=== PATIENT | female | born 1995 | race Caucasian/White ===

== ENCOUNTER 2017-05-02 05:28 | Inpatient (IN) ==
[2017-05-02] MEDS ORDERED: CITRIC ACID/SODIUM CITRATE 30ml PO ONE (05:43)
[2017-05-02] MEDS ORDERED: CEFAZOLIN PREMIX (MC ONLY) 2 GM/50 ML BAG IV ONE (05:43)
[2017-05-02] MEDS ORDERED: NOZIN NASAL SWAB NAS ONE ×2 (05:43)
[2017-05-02] MEDS ORDERED: FAMOTIDINE PB 20 MG/50 ML BAG IV ONE (05:43)
[2017-05-02 05:59] VITALS: BMI 34.0
[2017-05-02] MEDS ORDERED: NOZIN NASAL SWAB NAS SCH (06:00)
[2017-05-02] MEDS: LR 1,000 ML IV SCH ×4 (06:11→10:13)
--- NOTE | 2017-05-02 07:01 | Anesthesia Preoperative Report ---
Anesthesia Epidural/Spinal Rec - Date and Time Date: 05/02/17 Preoperative Diagnosis: C Section Procedure: Plan: Spinal - Vital Signs Vital Signs: Temperature 98.2 F 05/02/17 05:59 Pulse Rate 83 05/02/17 05:59 Respiratory Rate 18 05/02/17 05:59 Blood Pressure 130/93 H 05/02/17 05:59 Pulse Oximetry 98 05/02/17 05:59 /Para: P:1 - Medictaions & Allergies Inpatient Medications: Current Medications Lactated Ringer's (Lactated Ringers) 1,000 mls @ 999 mls/hr IV .Q1H1M [place] Isopropyl Alcohol (Nozin Nasal Swab) 1 each THOMAS 0600,1400,2200 [place] Allergies/Adverse Reactions: Allergies Allergy/AdvReac Type Severity Reaction Status Date / Time No Known Allergies Allergy Verified 03/10/17 12:37 - Home Medications Home Medications: Home Medications Medication Instructions Recorded Confirmed Type No known Home medications [No home 03/10/17 03/10/17 History meds] - Medical History Respiratory: DENIES: Asthma, Bronchitis, Chronic Obstructive Pulmonary Disease (COPD), Dyspnea, Orthopnea, Pulmonary Embolism, Pneumonia, Upper Respiratory Infection, Pulmonary Edema, Sleep Apnea, Tuberculosis, Other Cardiovascular: DENIES: Abnormal EKG, Angina, Arrhythmia, Congestive Heart Failure, Coronary Artery Disease, Heart Murmur, Hypertension, Hypotension, High Cholesterol, Myocardial Infarction, Rheumatic Fever, Valvular Heart Disease, Other Gastrointestional: DENIES: Obstructive Bowel, Hepatitis, Cirrhosis, Nausea or Vomiting Present, Gastroesophageal Reflux Disease, Gastrointestinal Bleeding, Hiatal Hernia, Ulcer , Morbid Obesity, Other Neuro/Musculoskeletal: Denies: HX.MS.OSAR, Back Problems, Cerebrovascular Accident, Depression, Headaches, Loss of Consciousness, Muscle Weakness, Neuromuscular Disorder, Paralysis, Paresthesia, Syncope, Seizures, Other Renal/Endocrine: DENIES: Diabetes Mellitus Type 1, Diabetes Mellitus Type 2, Renal Failure, Dialysis, Thyroid Disease, Weight Loss, Weight Gain, Other Other History: Reports: Now DENIES: Anesthesia Reactions, Blood Transfusions, Chemotherapy, Cancer, Hemophilia, Malignant Hyperthermia, Sickle Cell Disease, Other - Surgical History Anesthesia Reactions: None Hx Family Anesthesia Reaction: No History of Motion Sickness: No - Social History Smoking Status: Never smoker Second Hand Exposure: No Substance Use Type: does not use Alcohol Intake: never Alcohol Intake Frequency: does not drink Hx Chewing Tobacco Use: No - Pertinent Findings Lab Data: CBC and BMP 05/02/17 06:11 - Physical Exam Respiratory Exam: lungs clear, bilateral breath sounds equal Cardiovascular Exam: regular rate and rhythm, no murmur - Airway Assessment Mallampati Score: I TMD: 3 Fingerbreadths Neck Extension: good Overall Assessment: may be difficult intubation - ASA ASA Score: 2 - Discussion Discussion: Discussed risks/options/alternatives of anesthesia and questions answered. Patient consents. Nursing pain assessment noted. Attestation Statement: Prior to the delivery of any anesthetic medication, I examined the patient, developed the plan, obtained the patient's consent and discussed the risk and benefits of the procedure with the patient/guardian.
[2017-05-02] MEDS ORDERED: FentaNYL 100 MCG/2 ML INJECTION ONE (07:07)
[2017-05-02] MEDS ORDERED: ONDANSETRON 4 MG/2 ML INJECTION ONE (07:07)
[2017-05-02] MEDS ORDERED: MORPHINE SULFATE PF 5mg/10ml INJ (Duramorph) ONE (07:07)
[2017-05-02] MEDS ORDERED: EPHEDRINE 50mg/ml INJECTION ONE (07:18)
[2017-05-02] MEDS ORDERED: OXYTOCIN 10 UNIT/ML INJECTION ONE (07:34)
[2017-05-02] MEDS: OXYTOCIN DRIP 30 UNIT/500 ML ML IV SCH ×2 (07:38→10:14)
[2017-05-02] MEDS ORDERED: OXYTOCIN 10 UNIT/ML INJECTION IV ONE (08:36)
[2017-05-02] MEDS ORDERED: CALCIUM CARBONATE Chewable 500mg TABLET PO PRN (08:44)
[2017-05-02] MEDS ORDERED: DiphenhydrAMINE 25 MG CAPSULE PO PRN (08:44)
[2017-05-02] MEDS ORDERED: ACETAMINOPHEN 500 MG TABLET PO PRN (08:44)
[2017-05-02] MEDS ORDERED: OXYTOCIN DRIP 30 UNIT/500 ML ML IV SCH (08:44)
[2017-05-02] MEDS ORDERED: HYDROCORTISONE 2.5% CREAM 30gm RECTALLY PRN (08:44)
[2017-05-02] MEDS ORDERED: SIMETHICONE 80 MG CHEWABLE TABLET PO PRN (08:44)
--- NOTE | 2017-05-02 08:45 | Anesthesia Postoperative Note ---
- Date and Time Date: 05/02/17 Time: 08:44 - Status Patient Participated in Evaluation: Patient Participated in Person Vital Signs: Temperature 98.2 F 05/02/17 05:59 Pulse Rate 83 05/02/17 05:59 Respiratory Rate 18 05/02/17 05:59 Blood Pressure 130/93 H 05/02/17 05:59 Pulse Oximetry 98 05/02/17 05:59 Respiratory Function: Airway Patent, Regular Respirations Cardiovascular Function: Regular Pulse EKG Rhythm: Normal Sinus Rhythm Mental Status: Alert and Oriented Pain Intensity: 0 Hydration: IV Infusing Complications During Recover: None Apparent - Follow-Up Instructions Instructions: Per Surgeon
[2017-05-02] MEDS: D5LR 1,000 ML IV SCH (08:46)
[2017-05-02] MEDS ORDERED: NALBUPHINE 10 MG/ML INJECTION IVP PRN (09:22)
[2017-05-02] MEDS ORDERED: NALOXONE 2 MG/2 ML INJECTION PFS IVP PRN (09:22)
[2017-05-02] MEDS ORDERED: ONDANSETRON 4 MG/2 ML INJECTION IVP PRN (09:22)
[2017-05-02] MEDS ORDERED: DiphenhydrAMINE 50 MG/ML INJECTION IVP PRN (09:22)
[2017-05-02] MEDS: IBUPROFEN 800 MG TABLET PO SCH ×2 (10:06→19:37)
[2017-05-02] MEDS: HYDROCODONE/APAP 5mg/325mg TABLET PO PRN ×3 (10:07→23:08)
[2017-05-02] MEDS: DOCUSATE CALCIUM 240 MG CAPSULE PO SCH (10:11)
--- NOTE | 2017-05-02 14:02 | Operative Note ---
DATE OF OPERATION 05/02/2017 PREOPERATIVE DIAGNOSIS 1. Term , declines . 2. Previous x1. POSTOPERATIVE DIAGNOSIS 1. Term , declines . 2. Previous x1. PROCEDURE Repeat low transverse section. SURGEON Deloris Muhammad MD CYTOLOGY MANAGER Amador Garcia, Dye Worker ANESTHESIA Combo spinal/epidural [employer]S COORDINATOR Thiago Valenzuela CRNA EBL 600 mL DESCRIPTION OF PROCEDURE Ms. Villegas was brought to the OR and given regional analgesia to good effect. She was then placed on the OR table in a comfortable supine position with left lateral displacement. A Babin catheter was placed to dependent drain. The abdomen was prepped and draped in the usual sterile fashion. A Pfannenstiel skin incision was made with a sharp knife. This was carried down to fascia. Fascia was incised transversely. Fascia was then tented up. This was bluntly and sharply dissected free of rectus muscles. Rectus muscles were bluntly divided. Peritoneum was tented up and sharply entered. This was then extended vertically. The bladder blade was inserted. There were some adhesions between the lower uterine segment on the left and the peritoneum on the right. These were sharply dissected free. Vesicouterine fold of peritoneum was tented up and incised transversely and a bladder flap bluntly created. A low transverse uterine incision was made with a sharp knife. There was clear amniotic fluid. The incision was bluntly extended. Baby was delivered in the vertex OP presentation. Baby was bulb suctioned on the abdomen. Cord was doubly clamped and cut and baby was then given to the pediatric team for care. This is a liveborn female with Apgars of 8/9/9. She weighed 8 pounds, 4.5 ounces. The placenta was then expressed, intact. It had a normal configuration and normal- appearing three-vessel cord . The uterus was exteriorized and uterine cavity swept clear of membranes. We then reapproximated the myometrial incision with a running locking 0 Monocryl. We inspected carefully for hemostasis. This was under good control. Uterus, tubes and ovaries were noted to be grossly normal and were returned to the abdominal cavity. We reinspected for hemostasis; it remained good throughout the remainder of the procedure. Peritoneum was reapproximated with a running nonlocking 2-0 Vicryl. Fascia was reapproximated with running nonlocking 0 Vicryl. Skin edges were reapproximated with subcuticular style 3-0 undyed Vicryl. The wound was dressed with Steri-Strips and a sterile dressing. Counts were correct postoperatively x2. The urine remained clear and free-flowing throughout the procedure. Ms. Villegas was then transferred to recovery in stable condition. JESSICA
[2017-05-02] MEDS: SIMETHICONE 80 MG CHEWABLE TABLET PO SCH ×2 (16:52→23:08)
--- NOTE | 2017-05-02 16:57 | Progress Note ---
OB PP Progress Note Free Text - Date Date: 05/02/17 - Progress Note Progress Note: Pt reports good pain control. Ambulated earlier. AVSS Hgb 10.0--8.[address] Stable Cont routine care.
[2017-05-03] MEDS: SIMETHICONE 80 MG CHEWABLE TABLET PO SCH ×4 (00:28→21:50)
[2017-05-03] MEDS: D5LR 1,000 ML IV SCH (00:28)
[2017-05-03] MEDS: IBUPROFEN 800 MG TABLET PO SCH ×3 (04:47→20:00)
[2017-05-03] MEDS: HYDROCODONE/APAP 5mg/325mg TABLET PO PRN ×3 (04:47→20:00)
--- NOTE | 2017-05-03 10:25 | OB/GYN Progress Note ---
OB-PP Progress Note - General PPD1 POD:: POD1 Maternal Group B Strep: Negative Maternal blood type: O+ Maternal Rubella Status: Immune - Subjective Date: 05/03/17 Lochia: Minimal Pain: contolled Voiding: voiding - Objective Vital Signs: Last Vital Signs Temp 97.6 F 05/03/17 06:00 Pulse 103 H 05/03/17 06:00 Resp 16 05/03/17 06:00 BP 121/69 05/03/17 06:00 Pulse Ox 98 05/03/17 06:00 General: alert and oriented Respiratory: non-labored Abdomen: fundus firm Incision: normal Side: bilateral Edema Degree: 1+ Laboratory: Laboratory Results - last 24 hr 05/02/17 13:56 WBC 11.8 H D RBC 3.24 L Hgb 8.4 L D Hct 27.0 L D MCV 83.3 MCH 25.9 L MCHC 31.1 RDW Std Deviation 38.3 Plt Count 288 MPV 9.4 - Assessment Assessment: SP, Repeat C/S - Plan Plan: routine care (Plan dismissal POD#2)
[2017-05-03] MEDS: FERROUS SULFATE 324 MG TABLET PO SCH (10:59)
[2017-05-03] MEDS: DOCUSATE CALCIUM 240 MG CAPSULE PO SCH (11:03)
[2017-05-04] MEDS: HYDROCODONE/APAP 5mg/325mg TABLET PO PRN ×2 (00:39→04:23)
[2017-05-04 01:54] VITALS: PULSE 82; O2SAT 98
[2017-05-04] MEDS: SIMETHICONE 80 MG CHEWABLE TABLET PO SCH (02:27)
[2017-05-04] MEDS: IBUPROFEN 800 MG TABLET PO SCH (04:27)
[2017-05-04 04:32] VITALS: BP 125/74; RESP 18; TEMP 97.9
--- NOTE | 2017-05-04 06:28 | OB/GYN Progress Note ---
OB-PP Progress Note - General PPD1, PPD2 POD:: POD2 Maternal Group B Strep: Negative Maternal blood type: O+ Maternal Rubella Status: Immune - Subjective Date: 05/04/17 Lochia: Minimal Pain: contolled Voiding: voiding - Objective Vital Signs: Last Vital Signs Temp 97.9 F 05/04/17 04:31 Pulse 82 05/04/17 04:31 Resp 18 05/04/17 04:31 BP 125/74 05/04/17 04:31 Pulse Ox 98 05/04/17 01:54 General: alert and oriented Cardiovascular: regular rate,rhythm Respiratory: non-labored Abdomen: fundus firm, non-tender Incision: normal Extremities: non-tender - Assessment Assessment: SP, Repeat C/S - Plan Plan: routine care, discharge home
--- NOTE | 2017-05-04 06:32 | Discharge Instructions ---
Discharge Plan - Med Rec/Dispo Referrals/Follow Up: Deloris Muhammad MD [Physician] - [place] Instructions: [facility] Delivery Prescriptions: New Ibuprofen [Motrin] 800 mg PO Q8H #30 tab Ferrous Sulfate [Feosol] 324 mg PO WB #30 tab Hydrocodone/APAP 5/325 [[place] 5/325] 1 - 2 tab PO Q4H PRN #30 tab PRN Reason: Pain - Disposition 01 Discharged Home, Self-Care
[2017-05-04] MEDS: DOCUSATE CALCIUM 240 MG CAPSULE PO SCH (09:35)
[2017-05-04] MEDS: FERROUS SULFATE 324 MG TABLET PO SCH (09:35)
== END 2017-05-04 10:45 | disposition home or self-care (01) | DRG 766 ==
LOC: MC 05:28
PROVIDERS: ADMIT Obstetrics & Gynecology; ATTEND Obstetrics & Gynecology